=== PATIENT | female | born 1965 | race Caucasian/White ===

== ENCOUNTER 2020-09-06 06:31 | Inpatient (IN) | payer MEDICARE, SELFPAY ==
[2020-09-06] VITALS (52 sets, daily range): BP systolic 76–198; BP diastolic 52–148; PULSE 74–119; RESP 12–29; TEMP 35.6–38.7; O2SAT 94–100; BMI 44.2
[2020-09-06] MEDS: diphenhydrAMINE 50 mg/mL SDV 1mL (06:52)
[2020-09-06] MEDS: dexamethasone 10 mg/mL INJ IVP (06:57)
[2020-09-06] MEDS: EPINEPHrine 1 mg/mL INJ 0.3 MG IM (07:01)
[2020-09-06] MEDS: famotidine 20 mg/2 mL INJ 80 MG IVP (07:02)
--- NOTE | 2020-09-06 07:04 | PC.NURSE ---
Upon arrival to room, Dr Pete came to evaluate pt, pt was moved to room 11, intubation items set up and Dr Mathew was called to bedside. 20g IV placed to left hang 18g IV placed to right AC. Mylene Pete and [place] at bedside, difficult airway cart at bedside.
--- NOTE | 2020-09-06 07:10 | XR_ITS ---
WS: [id number] Exam: XR chest 1V portable [id number] Date/Time of Exam: 09/06/2020 7:10 AM Reason For Exam: syncope Findings: No priors. Diffuse interstitial densities noted throughout both lungs. This could represent chronic change, pulm onary edema or interstitial infiltrate. An ET tube is been placed and ends about 3 cm above the tamie a in good position. Cardiomediastinal structures are unremarkable for technique. No pleural effusions . Bony structures are unremarkable as visualized. XR/XR chest 1V portable [id number] IMPRESSION: 1. Diffuse interstitial infiltrates noted throughout both lungs. This could rep resent chronic change, interstitial pulmonary edema or infiltrate. 2. ET tube in satisfactory position.
[2020-09-06] MEDS: lidocaine 2% INJ 20 mL 60 ML INJECTION (07:11)
--- NOTE | 2020-09-06 07:12 | PC.NURSE ---
Aerosolized lidocaine started by RT via NRB
[2020-09-06 07:16] LABS: Basophils # 0.1 10^3/uL (0.0-0.1); Basophils % 0.3 %; Eosinophils # 0.3 10^3/uL (0.0-0.8); Eosinophils % 1.9 %; Hematocrit 39.9 % (37.0-47.0); Lymphocytes # 2.7 10^3/uL (0.8-4.8); Lymphocytes % 18.8 %; Mean Corpuscular HGB Conc 30.1 g/dL (30.0-36.0); Mean Corpuscular Volume 83.1 fL (81-99); Mean Platelet Volume 9.3 fL (7.4-10.4); Monocytes # 0.8 10^3/uL (0.2-0.9); Monocytes % 5.7 %; Neutrophils # 10.51 10^3/uL (1.8-7.7); Neutrophils % 72.9 %; Nucleated Red Blood Cells % 0 %; Platelet Count 450 10^3/cmm (130-400); White Blood Count 14.4 10^3/uL (4.0-10.0)
[2020-09-06] MEDS: dexmedetomidine 400 MCG in sodium chloride 0.9% (100 ml) 100 ML 14.7 MCG IV (07:18)
[2020-09-06] MEDS: midazolam 1 mg/mL INJ 2 mL 5 MG IVP (07:19)
[2020-09-06 07:23] LABS: INR 1.03 (0.8-1.2)
[2020-09-06 07:24] LABS: Partial Thromboplastin Time 32.4 SECONDS (23.9-36.7)
[2020-09-06] MEDS: fentaNYL 50 mcg/mL INJ 2mL IVP (07:26)
[2020-09-06] MEDS: fentaNYL 50 mcg/mL INJ 2mL 100 MCG IVP ×2 (07:26→08:50)
--- NOTE | 2020-09-06 07:27 | PC.NURSE ---
Aerosolized lidocaine administered to posterior pharynx by Dr Mathew. Nebulized lidocaine again administered by RT
[2020-09-06 07:30] LABS: Alanine Aminotransferase 31 U/L (0-33); Albumin Level 4.1 g/dL (3.5-5.2); Alkaline Phosphatase 104 IU/L (35-105); Anion Gap 14.1 (5-19); Aspartate Amino Transferase 23 U/L (0-32); Blood Urea Nitrogen 22 mg/dL (6-20); Calcium 9.7 mg/dL (8.5-10.5); Carbon Dioxide 27 mmol/L (22-29); Chloride 97 mmol/L (98-107); Globulin 3.7 g/dL (1.3-4.6); Glomerular Filtration Rate 51.4 mL/min (90-130); Glucose 240 mg/dL (65-115); Osmolality Calculated 289 mOsm/kg (285-295); Potassium 4.1 mmol/L (3.5-5.1); Sodium 134 mmol/L (136-145); Total Bilirubin 0.2 mg/dL (0.15-1.2); Total Protein 7.8 g/dL (6.6-8.7)
--- NOTE | 2020-09-06 07:31 | PC.NURSE ---
Another dose of aerosolized lidocaine administered by Dr Mathew
[2020-09-06] MEDS: succinylcholine 20 mg/mL SDV 10mL 120 MG IVP (07:44)
[2020-09-06] MEDS: propofol 1,000 MG/100 ML INJ 6.8 MG IV (07:46)
--- NOTE | 2020-09-06 08:14 | ED_ITS ---
HPI - General Adult General: Chief complaint: General Medical Stated complaint: swellling to the face Time Seen by Provider: 09/06/20 06:40 History of Present Illness: HPI narrative: 54 yo female with a hx of hereditary angioedema. Pt recently moved to the area and has not established with a physician. She has been controlling this in the past with oral prednisone and has been out of it for the last 2 wks. She present today with complaints of difficulty breathing, swallow or speaking. This has been progresing the last couple of days. Her daughter is with her today and states this is the worst it has been and pt confirms. pt emergently moved to trauma bay for airway management. Onset (ago): day(s) Location: face, mouth and eyes Severity: severe and similar to prior episodes Relieving factors: none Exacerbating factors: none Associated symptoms: Reports dyspnea, short of breath and weakness; Deny chest pain, confusion, cough, diaphoresis, decreased appetite, fevers/chills, headache(s), malaise, nausea, rash, palpitations, seizures, syncope or vomiting Treatments prior to arrival: none Review of Systems General: Reports: ROS unobtainable due to medical condition Const: Denies: malaise or diaphoresis Card: Denies: chest pain, palpitations or syncope Resp: Reports: dyspnea GI: Denies: nausea or vomiting Skin/Breast: Denies: rash Neuro: Denies: headache(s) or confusion PFS ED PFSH: Medical History (Updated 09/06/20 @ 11:12 by Azeb iLn DO) Angioedema, hereditary Immunocompromised due to corticosteroids Obesity Tobacco abuse Surgical History (Updated 09/06/20 @ 11:07 by Azeb Lin DO) History of tubal ligation Family History (Updated 09/06/20 @ 11:12 by Azeb Lin DO) Mother Diabetes Type 1 diabetes mellitus Father CAD (coronary artery disease) Social History (Updated 09/06/20 @ 11:13 by Azeb Lin DO) Smoking and tobacco status: current every day smoker Alcohol intake: never Substance/Drug Use: never Physical Exam HENMT: OTHER: Severe angioedema of the face. Includes the eyes lips and tongue unable to visualize the posterior pharynx patient was not able to speak patient is audible stridor with breathing. Trachea is still palpable. Resp: EFFORT & INSPECTION: Yes respiratory distress, Yes retractions and Yes audible wheezes OTHER: Patient has audible stridor. Cardio: COMMON NORMALS: regular rhythm RATE: tachycardic RHYTHM: regular rhythm GI: COMMON NORMALS: Soft to palpation and No hepatosplenomegaly present AUSCULTATION: Yes normoactive bowel sounds PALPATION: Yes Soft to palpation, No Tenderness to palpation present (GI), No Guarding due to palpation present (GI) and Yes No hepatosplenomegaly present Extremity: COMMON NORMALS: normal to inspection, capillary refill normal and no calf tenderness Skin: COMMON NORMALS: no rashes or lesions noted GENERAL SKIN EXAM: no rashes or lesions noted Course Vital Signs: Vital signs: Vital Signs Temperature 98.9 F 09/07/20 06:00 Pulse Rate 96 09/07/20 06:00 Respiratory Rate 16 09/07/20 07:59 Blood Pressure 130/96 09/07/20 06:00 Pulse Oximetry 98 09/07/20 06:00 MDM - General Adult MDM Narrative: Medical decision making narrative: Patient moved to the trauma bay and contacted anesthesia and Dr. Mathew. Preparations were made to perform an awake intubation. Dr. Mathew was able to successfully intubate the patient on the second attempt with a intubating fiberoptic bronchoscope. Patient then sedated with etomidate and propofol and fentanyl. Patient is tolerating well will admit to ICU with angioedema with the plan that once the angioedema resolves we should be able to extubate. Lab Data: Labs: Lab Results 09/06/20 09/06/20 09/06/20 Range/Units 06:50 06:50 06:50 WBC 14.4 H (4.0-10.0) 10^3/ uL RBC 4.80 (4.1-5.3) 10^6/u L Hgb 12.0 (11.5-15.3) g/dL Hct 39.9 (37.0-47.0) % MCV 83.1 (81-99) fL MCH 25.0 L (28.0-34.0) pg MCHC 30.1 (30.0-36.0) g/dL RDW 18.0 H (12.1-15.1) % Plt Count 450 H (130-400) 10^3/c mm MPV 9.3 (7.4-10.4) fL Neut % (Auto) 72.9 % Lymph % (Auto) 18.8 % [place] % (Auto) 5.7 % Eos % (Auto) 1.9 % Baso % (Auto) 0.3 % Neut # (Auto) 10.51 H (1.8-7.7) 10^3/u L Lymph # (Auto) 2.7 (0.8-4.8) 10^3/u L [place] # (Auto) 0.8 (0.2-0.9) 10^3/u L Eos # (Auto) 0.3 (0.0-0.8) 10^3/u L Baso # (Auto) 0.1 (0.0-0.1) 10^3/u L Nucleated RBC % (a uto) 0 % Nucleated RBCs # 0.0 /100WBC PT 13.90 (12.1-14.9) SECO NDS INR 1.03 (0.8-1.2) APTT 32.4 (23.9-36.7) SECO NDS Sodium 134 L (136-145) mmol/L Potassium 4.1 (3.5-5.1) mmol/L Chloride 97 L (98-107) mmol/L Carbon Dioxide 27 (22-29) mmol/L Anion Gap 14.1 (5-19) BUN 22 H (6-20) mg/dL Creatinine 1.1 H (0.5-0.9) mg/dL GFR Calculation 51.4 L (90-130) mL/min Glucose 240 H (65-115) mg/dL Calculated Osmolal ity 289 (285-295) mOsm/k g Calcium 9.7 (8.5-10.5) mg/dL Total Bilirubin 0.2 (0.15-1.2) mg/dL AST 23 (0-32) U/L ALT 31 (0-33) U/L Alkaline Phosphata se 104 (35-105) IU/L Total Protein 7.8 (6.6-8.7) g/dL Albumin 4.1 (3.5-5.2) g/dL Globulin 3.7 (1.3-4.6) g/dL Urine Color (Yellow) Urine Appearance (CLEAR) Urine pH (5-7) Ur Specific Gravit y (1.005-1.030) Urine Protein (Negative) Urine Glucose (UA) (Normal) Urine Ketones (Negative) Urine Blood (Negative) Urine Nitrate (Negative) Urine Bilirubin (Negative) Urine Urobilinogen (Negative) mg/dL Ur Leukocyte Samantha ase (Negative) Urine RBC (0-2) /hpf Urine WBC (0-5) /hpf Ur Squamous Epith Cells (0-5) /hpf Amorphous Sediment Urine Bacteria (NONE) /hpf Coarse Granular Ca sts /lpf Urine Mucus /hpf Complement C4 (10-40) mg/dL 09/06/20 09/06/20 Range/Units 06:50 08:05 WBC (4.0-10.0) 10^3/ uL RBC (4.1-5.3) 10^6/u L Hgb (11.5-15.3) g/dL Hct (37.0-47.0) % MCV (81-99) fL MCH (28.0-34.0) pg MCHC (30.0-36.0) g/dL RDW (12.1-15.1) % Plt Count (130-400) 10^3/c mm MPV (7.4-10.4) fL Neut % (Auto) % Lymph % (Auto) % [place] % (Auto) % Eos % (Auto) % Baso % (Auto) % Neut # (Auto) (1.8-7.7) 10^3/u L Lymph # (Auto) (0.8-4.8) 10^3/u L [place] # (Auto) (0.2-0.9) 10^3/u L Eos # (Auto) (0.0-0.8) 10^3/u L Baso # (Auto) (0.0-0.1) 10^3/u L Nucleated RBC % (a uto) % Nucleated RBCs # /100WBC PT (12.1-14.9) SECO NDS INR (0.8-1.2) APTT (23.9-36.7) SECO NDS Sodium (136-145) mmol/L Potassium (3.5-5.1) mmol/L Chloride (98-107) mmol/L Carbon Dioxide (22-29) mmol/L Anion Gap (5-19) BUN (6-20) mg/dL Creatinine (0.5-0.9) mg/dL GFR Calculation (90-130) mL/min Glucose (65-115) mg/dL Calculated Osmolal ity (285-295) mOsm/k g Calcium (8.5-10.5) mg/dL Total Bilirubin (0.15-1.2) mg/dL AST (0-32) U/L ALT (0-33) U/L Alkaline Phosphata se (35-105) IU/L Total Protein (6.6-8.7) g/dL Albumin (3.5-5.2) g/dL Globulin (1.3-4.6) g/dL Urine Color Yellow (Yellow) Urine Appearance Clear (CLEAR) Urine pH 5.0 (5-7) Ur Specific Gravit y 1.020 (1.005-1.030) Urine Protein Neg (Negative) Urine Glucose (UA) Trace H (Normal) Urine Ketones Negative (Negative) Urine Blood Neg (Negative) Urine Nitrate Negative (Negative) Urine Bilirubin Neg (Negative) Urine Urobilinogen Norm (Negative) mg/dL Ur Leukocyte Samantha ase Trace H (Negative) Urine RBC 0-4 H (0-2) /hpf Urine WBC 15-25 H (0-5) /hpf Ur Squamous Epith Cells 0-4 H (0-5) /hpf Amorphous Sediment Not Reportable Urine Bacteria 2+ H (NONE) /hpf Coarse Granular Ca sts 0-4 H /lpf Urine Mucus 1+ /hpf Complement C4 33 (10-40) mg/dL Discharge Plan Discharge Patient Disposition: Admitted As Inpatient Admit Provider: Azeb Lin Clinical Impression: Angioedema, hereditary, Acute airway obstruction Condition: Stable Discharge Date/Time: 09/06/20 11:10 Coding Level of Care Code ED Quality Control Chemist for Chg Fwd Exam Detailed
--- NOTE | 2020-09-06 08:17 | PC.NURSE ---
Procedure time for intubation started at approx 0725. See other notes for lidocaine times. At 0740, Dr Mathew attempted for the first time, attempt was unsuccessful, pt desaturated to 64%, pt was placed on BVM at 15L and quickly came up to 95%. Pt was pre-oxygenated for 2nd attempt. 7.5 tube placed at [address] Mathew and Dr Meeks, tube 27 at the lip. CXR was performed at 0749, per VO from Dr Pete, RT pulled tube out 3cm. Repeat CXR performed at 0751 and again tube was pulled back another 1cm by RT per VO from Dr Pete. Repeat CXR performed at 0753, showed ETT 2cm above the maged. Tube now 23 at the lip. Pt tolerated intubation fair, now resting on ventilator with TV 400, FiO2 60%, RR 14, and peep of 8.
[2020-09-06 08:20] LABS: Add Urine Microscopic? YES; Bilirubin Urine Neg (Negative); Blood Urine Neg (Negative); Glucose Urine UA Trace (Normal); Ketones Urine Negative (Negative); Leukocyte Esterase Urine Trace (Negative); Nitrate Urine Negative (Negative); Protein Urine Neg (Negative); Urine Appearance Clear (CLEAR); Urine Color Yellow (Yellow); Urobilinogen Urine Norm (Negative)
[2020-09-06 08:31] LABS: Bacteria Urine 2+ /hpf; Coarse Granular Casts Urine 0-4 /lpf; Mucus Urine 1+ /hpf; RBC Urine 0-4 /hpf (0-2); Squamous Epithelial Cell Urine 0-4 /hpf (0-5); WBC Urine 15-25 /hpf (0-5)
[2020-09-06 08:32] LABS: Add Urine Culture? Yes
[2020-09-06] MEDS: vecuronium 10 mg SDV IVP (08:47)
--- NOTE | 2020-09-06 08:53 | PC.NURSE ---
Pt was noted to be moving in the bed and attempting to self-extubate. Nursing staff and Dr Pete to pt side. RT was called. Pt given 10mg Vecuronium and 100mcg Fentanyl per VO from Dr Pete, Propofol drip increased to 30. Pt placed in soft-wrist restraints and suctioned, pt desaturated to 81% after suctioning. RT turned pt vent up to an FiO2 of 100% and peep of 10. Pt now resting comfortably.
--- NOTE | 2020-09-06 08:54 | XR_ITS ---
WS: [id number] Exam: XR chest 1V portable [id number] Date/Time of Exam: 09/06/2020 8:54 AM Reason For Exam: dyspnea/cough Findings: Comparison made with an exam performed earlier on the same day at 0747 hours. There is increasing infiltrate in the left lung since the prior study. The right lung is unchanged. E T tube remains in good position ending about 3 cm above the maged. No pneumothorax or pleural effusi on noted. Monitoring leads superimpose the chest. XR/XR chest 1V portable [id number] IMPRESSION: 1. Increasing diffuse infiltrate in the left lung since the earlier study on same day. No other change.
[2020-09-06] MEDS: ipratropium-albuterol 3 mL Neb INHALATION (09:02)
[2020-09-06 09:19] LABS: ABG PCO2 50.4 mmHg (35-45); ABG PH Result 7.29 (7.35-7.45); Arterial Blood Gas Hematocrit 36.3 % (37-47); Base Excess ABG -2.8 mmol/L (-2.0-2.0); Blood Gas Allen Test Pos; Blood Gas Sample Type Arterial; Carboxyhemoglobin 0.9 %THgb (0.4-20.1); HCO3 ABG 24.2 mmol/L (22-26); Ionized Calcium Level - ABG 1.2 mmol/L (1.1-1.4); Methemoglobin 0.7 % (0.4-1.5); Oxygen Saturation ABG 98.6; Potassium Level - ABG 4.6 mmol/L (3.5-5.0); Total Hemoglobin 11.8 g/dL (12-16)
[2020-09-06 09:20] LABS: Alveolar-Arterial Oxygen Gradi 51.7 mmHg (5-10); Blood Gas Operator Identificat ED; Blood Gas Sample Site Radial, left; Oxygen Device VENT
[2020-09-06 09:43] LABS: SARS Covid-2 Antigen Negative (Negative)
[2020-09-06] MEDS: sodium chloride 0.9% 1,000 ML 125 ML IV (10:02)
[2020-09-06] MEDS: dexmedetomidine 400 MCG in sodium chloride 0.9% (100 ml) 100 ML 41.3 MCG IV (10:25)
[2020-09-06] MEDS: enoxaparin 40 mg/0.4 mL Syringe SUBCUT (10:44)
--- NOTE | 2020-09-06 11:04 | PM.HP ---
Providers/Chief Complaint Admitting Physician: Azeb Lin DO Chief Complaint: swellling to the face History of Present Illness Stefani Darden is a 54 year old female that presented to the emergency department today for increasing difficulty breathing. Patient was reported to have hereditary angioedema and recently moved to this area last . She has not had time to establish with a primary care provider. According to her daughter she had been taking prednisone and Benadryl at home, she thought the prednisone was from the patient's brothers prescription as she had been out and not sought care in some time. She stated that she has episodes frequently and has had multiple emergency room trips where they have been able to give her steroids and send her back home for close monitoring. This is the first episode that is required mechanical ventilation. Unable to obtain HPI from patient due to sedation and mechanical ventilation. Daughter was able to provide some information but stated that she has not seen her mother in approximately 4 years, as she just came to live with her last . No recent cough or sputum production, no fevers or chills had been reported. Review of Systems General: Reports: ROS unobtainable due to endotracheal tube Medications/Allergies Home Medications Medication Instructions Recorded Confirmed Last Taken Type Unable to Assess 09/06/20 09/06/20 Unknown History Allergies Allergy/AdvReac Type Severity Reaction Status Date / Time No Known Allergies Allergy Verified 09/06/20 06:46 PFSH Acute PFSH: Medical History (Updated 09/06/20 @ 11:12 by Azeb Lin DO) Angioedema, hereditary Immunocompromised due to corticosteroids Obesity Tobacco abuse Surgical History (Updated 09/06/20 @ 11:07 by Azeb Lin DO) History of tubal ligation Family History (Updated 09/06/20 @ 11:12 by Azeb Lin DO) Mother Diabetes Type 1 diabetes mellitus Father CAD (coronary artery disease) Social History (Updated 09/06/20 @ 11:13 by Azeb Lin DO) Smoking and tobacco status: current every day smoker Alcohol intake: never Substance/Drug Use: never Supplemental PFSH Information: Recently moved here from an outside state to live with her daughter. Vitals/I&O/Wt Last Vital Signs Temp 96.0 F L 09/06/20 06:38 Pulse 76 09/06/20 10:52 Resp 18 09/06/20 10:52 BP 106/73 09/06/20 10:52 Pulse Ox 99 09/06/20 10:52 09/05/20 09/06/20 09/06/20 22:59 06:59 14:59 Intake Total 16.343 / 16.343 Balance 16.343 / 16.343 Weight last 48 hrs Weight 113.398 kg Physical Exam Const: GENERAL APPEARANCE: patient mechanically ventilated OTHER: Intubated, sedated HENMT: OTHER: Swelling of the lips, tongue and around the eyes, ET tube in place Eye: COMMON NORMALS: Equal, round and reactive pupils present PUPIL: Yes Equal, round and reactive pupils present Neck/C-Spine: OTHER: Swelling over the lips and neck Resp: OTHER: Intubated, sedated, diminished breath sounds bilaterally Cardio: COMMON NORMALS: regular rate, regular rhythm and No murmurs present (Cardio) RATE: regular rate RHYTHM: regular rhythm GI: COMMON NORMALS: Soft to palpation and non-tender INSPECTION: No abdominal distension AUSCULTATION: Yes normoactive bowel sounds PALPATION: Yes Soft to palpation Extremity: COMMON NORMALS: no clubbing, cyanosis or edema and no calf tenderness Neuro: OTHER: Sedated Skin: NARRATIVE SKIN EXAM: No appreciable rashes or lesions Urinary Catheter Management^: [place]: Cath Placed During This Visit: yes Reason for Continuing Indwelling Catheter: Accurate Measurement of Urinary Output in Critically Ill Patients Urinary Catheter Date of Insertion: 09/06/20 Urinary Catheter Time of Insertion: 07:58 Data : 09/06/20 06:50 09/06/20 06:50 CXR: I personally reviewed and interpreted this imaging study as follows: Radiologist's impression: Findings: Comparison made with an exam performed earlier on the same day at 0747 hours. There is increasing infiltrate in the left lung since the prior study. The right lung is unchanged. ET tube remains in good position ending about 3 cm above the maged. No pneumothorax or pleural effusion noted. Monitoring leads superimpose the chest. XR/XR chest 1V portable [id number] IMPRESSION: 1. Increasing diffuse infiltrate in the left lung since the earlier study on the same day. No other change. A&P Assessment and plan (1) Angioedema, hereditary: Family reports that patient was previously on prednisone 20mg daily for the last 6 yrs. Given IV steroids on arrival, will continue at this time for stress dosing will check C4 level check C1 inhibitor antigenic level Status: Acute (2) Acute airway obstruction: s/p intubation in the ED due to stridor, difficult intubation due to angioedema Status: Acute (3) Immunocompromised due to corticosteroids: On stress dose steroids at this time Status: Acute (4) Tobacco abuse: strongly encourage cessation Status: Acute (5) Obesity: Status: Acute Additional A&P Information Diet: NPO DVT ppx: Lovenox Code status: Full code Attestations Medical Necessity Statement*: Patient requires hospitalization due to angioedema with compromised airway requiring intubation. Expected stay greater than 2 midnights Coding Level of Care Code Acute Senior Manufacturing Engineer for Chg Fwd Exam Detailed Diagnoses Angioedema, hereditary D84.1 Acute airway obstruction J98.8 Immunocompromised due to corticosteroids Z79.52 Tobacco abuse Z72.0 Obesity E66.9
--- NOTE | 2020-09-06 12:18 | PM.ACPR ---
Procedure/Consent Time out: Time Out Performed: No Consent: Consent for Procedure: Consent obtained from patient Additional Consent Information: Verbally Procedure Narrative: Name of the procedure: Bronchoscopy and fiberoptic awake intubation. Indication: Threatened airway secondary to angioedema. Medication: Nebulized lidocaine, dexmedetomidine, Versed 2 mg, fentanyl 50 mcg, ketamine 100 mg. Description of the procedure: Consent was obtained verbally for the bronchoscopy and fiberoptic awake intubation procedure. The patient received 2% lidocaine 5 mL nebulized followed by atomized lidocaine in the posterior pharynx and laryngeal area. The patient was sedated using the above-mentioned medications. The bronchoscopy was performed while the patient sitting 90 degrees. The endotracheal tube was loaded on the bronchoscope and the bronchoscope was advanced through the mouth. Significant swelling of the tongue, floor of the mouth, posterior pharyngeal area, uvula and false vocal cords noted. There was clear secretion in the area. During the first attempt, the patient rapidly desaturated within 15 seconds. She was oxygenated using bag mask ventilation with rapid correction of the hypoxia. On the second attempt, I was able to pass the bronchoscope through the vocal cords. The upper trachea, maged appeared normal without any significant swelling. The endotracheal tube was advanced and the position was confirmed in the trachea. Complications: The patient tolerated the procedure well. Postprocedure chest x-ray showed optimally positioned endotracheal tube. Acute Procedures Epistaxis Control: Time out performed: No
[2020-09-06] MEDS: dexmedetomidine 400 MCG in sodium chloride 0.9% (100 ml) 100 ML 35.4 MCG IV (12:58)
[2020-09-06 13:00] LABS: Troponin(5th) Baseline 12 ng/L (0-10)
[2020-09-06] MEDS: propofol 1,000 MG/100 ML INJ 27.2 MG IV ×3 (13:15→20:04)
[2020-09-06 16:01] LABS: Troponin 5 2HR 16.25 ng/L (0-10); Troponin 5 2HR Delta 4.25 ABS# (0-10)
--- NOTE | 2020-09-06 17:57 | ECG_ITS ---
[facility] Test Date: 2020-09-06 Pat Name: Stefani Darden Department: Room: ICU10 Gender: Female Ash Handler: : 1965 Requested By: Azeb Lin Order Number: [id number] Reading MD: Measurements Intervals [place] Rate: 74 P: 54 SD: 156 QRS: 66 QRSD: 76 T: 76 QT: 414 QTc: 461 Interpretive Statements SINUS RHYTHM No previous ECG available for comparison [email or web address]
[2020-09-06] MEDS: famotidine 20 mg/2 mL INJ IVP (17:59)
[2020-09-06 18:45] LABS: Troponin 5 6HR 10.39 ng/L (0-10)
[2020-09-06 19:07] LABS: Troponin 5 6HR Delta -1.61 ng/L (0-12)
[2020-09-06] MEDS: acetaminophen 650 mg Supp PR (19:26)
[2020-09-06 19:54] LABS: Lactic Sepsis W/Reflex 1.7 mmol/L (0.5-2.2)
--- NOTE | 2020-09-06 21:43 | PC.NURSE ---
This RN completed spot Accucheck based off findings of pt having history of DM type 1 documented in ER H&P. BG found to be 385. Contacted MD Angelica policyholder information clerk to update on findings. New v/o for Accuchecks to be completed ACHS, with sliding scale insulin to be ordered.
[2020-09-06] MEDS: propofol 1,000 MG/100 ML INJ 34 MG IV (22:44)
[2020-09-07] VITALS (85 sets, daily range): BP systolic 92–133; BP diastolic 59–96; PULSE 73–106; RESP 16–41; TEMP 36.3–37.5; O2SAT 90–98
[2020-09-07] MEDS: propofol 1,000 MG/100 ML INJ 34 MG IV ×4 (01:29→10:24)
[2020-09-07 02:20] LABS: Glucose Point of Care 421 mg/dL (70-110)
[2020-09-07 04:14] LABS: Basophils % 0.1 %; Eosinophils % 0.1 %; Hematocrit 38.8 % (37.0-47.0); Hemoglobin 11.2 g/dL (11.5-15.3); Lymphocytes # 1.3 10^3/uL (0.8-4.8); Lymphocytes % 11.7 %; Mean Corpuscular HGB Conc 28.9 g/dL (30.0-36.0); Mean Corpuscular Hemoglobin 24.2 pg (28.0-34.0); Mean Platelet Volume 9.5 fL (7.4-10.4); Monocytes # 0.5 10^3/uL (0.2-0.9); Monocytes % 4.6 %; Neutrophils # 8.96 10^3/uL (1.8-7.7); Neutrophils % 82.8 %; Nucleated Red Blood Cells % 0 %; Platelet Count 405 10^3/cmm (130-400); Red Blood Count 4.62 10^6/uL (4.1-5.3); Red Cell Distribution Width 17.9 % (12.1-15.1); White Blood Count 10.8 10^3/uL (4.0-10.0)
[2020-09-07 04:33] LABS: Alanine Aminotransferase 40 U/L (0-33); Albumin Level 3.7 g/dL (3.5-5.2); Alkaline Phosphatase 102 IU/L (35-105); Anion Gap 16.8 (5-19); Aspartate Amino Transferase 28 U/L (0-32); Blood Urea Nitrogen 26 mg/dL (6-20); Calcium 8.9 mg/dL (8.5-10.5); Carbon Dioxide 22 mmol/L (22-29); Chloride 102 mmol/L (98-107); Globulin 3.6 g/dL (1.3-4.6); Glomerular Filtration Rate 57.4 mL/min (90-130); Glucose 352 mg/dL (65-115); Osmolality Calculated 303 mOsm/kg (285-295); Potassium 3.8 mmol/L (3.5-5.1); Sodium 137 mmol/L (136-145); Total Bilirubin 0.2 mg/dL (0.15-1.2); Total Protein 7.3 g/dL (6.6-8.7)
[2020-09-07 05:10] LABS: ABG PCO2 43.3 mmHg (35-45); ABG PH Result 7.36 (7.35-7.45); Base Excess ABG -1.2 mmol/L (-2.0-2.0); Blood Gas Allen Test Pos; Blood Gas Sample Site Radial, right; Blood Gas Sample Type Arterial; HCO3 ABG 24.4 mmol/L (22-26); Oxygen Device VENT; PO2 ABG 79.2 mmHg (80.0-100.0)
[2020-09-07] MEDS: famotidine 20 mg/2 mL INJ IVP ×2 (06:16→17:33)
--- NOTE | 2020-09-07 06:20 | PC.NURSE ---
Shift Summary: Patient has shown some signs of increased agitation throughout shift. Ativan IVP given once. Low grade fever at start of shift. PRN Tylenol Suppository given. Cool cloths applied to neck/axillary Pt airway still patent. SPO2 maintains above 95%. Edema to right side of face and periorbital range slowly increasing throughout shift. Airway still maintains. 700 u/o. Propofol 50mcg/kg/min (see mar flowsheet) Fentanyl 75mcg/hr Sedation vacation attempted this AM. Patient unable to show response when asked. Localizes pain. Report given to oncoming dayshift RN.
[2020-09-07 06:41] LABS: Coronavirus Lab Test PTC Negative
[2020-09-07 07:47] LABS: Glucose Point of Care 332 mg/dL (70-110)
[2020-09-07 07:47] LABS: Glucose Point of Care 328 mg/dL (70-110)
[2020-09-07 07:47] LABS: Glucose Point of Care 385 mg/dL (70-110)
[2020-09-07] MEDS: pantoprazole 40 mg SDV IVP (08:03)
--- NOTE | 2020-09-07 10:09 | PM.PN ---
Subjective Subjective: Interval history: Intubated, sedated, appears to have improved facial swelling, RN at bedside reported no concerns overnight Vitals/I&O/Wt Last Vital Signs Temp 97.4 F L 09/07/20 07:00 Pulse 98 09/07/20 08:30 Resp 41 H 09/07/20 09:41 BP 114/77 09/07/20 08:30 Pulse Ox 94 09/07/20 08:30 09/06/20 09/07/20 09/07/20 22:59 06:59 14:59 Intake Total 306.277 / 1515.910 193.5 / 1709.410 189.75 / 189.75 Output Total 1275 / 1275 325 / 1600 Balance -968.723 / 240.910 -131.5 / 109.410 189.75 / 189.75 Weight last 48 hrs Weight 125.191 kg Weight 113.398 kg Physical Exam Const: GENERAL APPEARANCE: patient mechanically ventilated OTHER: Intubated, sedated HENMT: OTHER: Swelling of the lips, tongue and around the eyes has improved since yesterday, ET tube in place Eye: COMMON NORMALS: Equal, round and reactive pupils present PUPIL: Yes Equal, round and reactive pupils present Neck/C-Spine: OTHER: Swelling over the lips and neck have improved Resp: OTHER: Intubated, sedated, diminished breath sounds bilaterally Cardio: COMMON NORMALS: regular rate, regular rhythm and No murmurs present (Cardio) RATE: regular rate RHYTHM: regular rhythm GI: COMMON NORMALS: Soft to palpation and non-tender INSPECTION: No abdominal distension AUSCULTATION: Yes normoactive bowel sounds PALPATION: Yes Soft to palpation Extremity: COMMON NORMALS: no clubbing, cyanosis or edema and no calf tenderness Neuro: OTHER: Sedated Skin: NARRATIVE SKIN EXAM: No appreciable rashes or lesions Urinary Catheter Management^: [place]: Cath Placed During This Visit: yes Reason for Continuing Indwelling Catheter: Accurate Measurement of Urinary Output in Critically Ill Patients Urinary Catheter Date of Insertion: 09/06/20 Urinary Catheter Time of Insertion: 07:58 Data : 09/07/20 03:55 09/07/20 03:55 Micro: Microbiology 09/06/20 08:05 Urine Culture - Preliminary Urine,Clean Catch 09/06/20 19:26 Blood Culture - Preliminary Blood SPECIMEN COLLECTED 09/06/20 19:30 Blood Culture - Preliminary Blood SPECIMEN COLLECTED 09/06/20 08:10 Gram Stain - Final Sputum - Endotracheal Tube Aspirate A&P Assessment and plan (1) Angioedema, hereditary: Family reports that patient was previously on prednisone 20mg daily for the last 6 yrs. Decreased dose of IV steroids today Need close outpatient follow-up We will continue to monitor airway with potential extubation today or tomorrow Status: Acute (2) Acute airway obstruction: s/p intubation in the ED due to stridor, difficult intubation due to angioedema Status: Acute (3) Immunocompromised due to corticosteroids: On stress dose steroids at this time Status: Acute (4) Tobacco abuse: strongly encourage cessation Status: Acute (5) Obesity: Status: Acute Additional A&P Information Isolated fever overnight: Blood cultures ordered, will check procalcitonin, no evidence of any bacterial infection at this time, afebrile today Diet: NPO DVT ppx: Lovenox Code status: Full code Attestations Medical Necessity Statement*: Patient requires hospitalization due to hereditary angioedema requiring mechanical ventilation Coding Level of Care Code Acute Provisioning Specialist for [facility] Fwd Diagnoses Angioedema, hereditary D84.1 Acute airway obstruction J98.8 Immunocompromised due to corticosteroids Z79.52 Tobacco abuse Z72.0 Obesity E66.9
[2020-09-07] MEDS: enoxaparin 40 mg/0.4 mL Syringe SUBCUT (10:22)
[2020-09-07 10:58] LABS: Glucose Point of Care 302 mg/dL (70-110)
[2020-09-07] MEDS: propofol 1,000 MG/100 ML INJ 40.8 MG IV ×4 (14:30→22:14)
[2020-09-07 17:04] LABS: Glucose Point of Care 218 mg/dL (70-110)
[2020-09-08] VITALS (73 sets, daily range): BP systolic 99–133; BP diastolic 56–99; PULSE 69–121; RESP 6–29; TEMP 36.2–37.3; O2SAT 90–99
[2020-09-08] MEDS: propofol 1,000 MG/100 ML INJ 40.8 MG IV ×2 (00:53→03:36)
[2020-09-08 05:25] LABS: Blood Gas Sample Type Arterial; HCO3 ABG 25.7 mmol/L (22-26); Oxygen Device VENT
[2020-09-08] MEDS: famotidine 20 mg/2 mL INJ IVP ×2 (05:52→17:03)
[2020-09-08 05:57] LABS: ABG PCO2 41.2 mmHg (35-45); Arterial Blood Gas Hematocrit 34.2 % (37-47); Base Excess ABG 0.8 mmol/L (-2.0-2.0); Blood Gas Operator Identificat HARKR; Blood Gas Sample Site Brachial, right; PO2 ABG 74.8 mmHg (80.0-100.0)
[2020-09-08] MEDS: propofol 1,000 MG/100 ML INJ 34 MG IV (06:35)
[2020-09-08 07:48] LABS: Glucose Point of Care 212 mg/dL (70-110)
[2020-09-08 07:48] LABS: Glucose Point of Care 230 mg/dL (70-110)
[2020-09-08 08:20] LABS: Alanine Aminotransferase 42 U/L (0-33); Albumin Level 3.6 g/dL (3.5-5.2); Alkaline Phosphatase 88 IU/L (35-105); Anion Gap 14.1 (5-19); Aspartate Amino Transferase 37 U/L (0-32); Blood Urea Nitrogen 33 mg/dL (6-20); Calcium 8.8 mg/dL (8.5-10.5); Carbon Dioxide 24 mmol/L (22-29); Chloride 101 mmol/L (98-107); Globulin 3.3 g/dL (1.3-4.6); Glomerular Filtration Rate 74.2 mL/min (90-130); Glucose 257 mg/dL (65-115); Osmolality Calculated 296 mOsm/kg (285-295); Potassium 4.1 mmol/L (3.5-5.1); Sodium 135 mmol/L (136-145); Total Bilirubin 0.2 mg/dL (0.15-1.2); Total Protein 6.9 g/dL (6.6-8.7)
[2020-09-08] MEDS: pantoprazole 40 mg SDV IVP (09:19)
[2020-09-08] MEDS: enoxaparin 40 mg/0.4 mL Syringe SUBCUT (11:49)
--- NOTE | 2020-09-08 14:18 | PM.PN ---
Subjective Subjective: Interval history: Patient intubated and sedated this morning. Open her eyes some in response to voice. Vitals/I&O/Wt Last Vital Signs Temp 97.1 F L 09/08/20 07:00 Pulse 109 H 09/08/20 14:15 Resp 22 H 09/08/20 14:15 BP 126/91 09/08/20 14:15 Pulse Ox 93 09/08/20 14:15 09/07/20 09/08/20 09/08/20 22:59 06:59 14:59 Intake Total 356.573 / 778.698 401.417 / 1180.115 132.919 / 132.919 Output Total 425 / 425 400 / 825 Balance -68.427 / 353.698 1.417 / 355.115 132.919 / 132.919 Weight last 48 hrs Weight 125.191 kg Weight 125.191 kg Physical Exam Const: GENERAL APPEARANCE: patient mechanically ventilated OTHER: Intubated, sedated HENMT: OTHER: Swelling of the lips, tongue and around the eyes has improved since yesterday, ET tube in place Eye: COMMON NORMALS: Equal, round and reactive pupils present PUPIL: Yes Equal, round and reactive pupils present Neck/C-Spine: OTHER: Swelling over the lips and neck have much improved Resp: OTHER: Intubated, sedated, diminished breath sounds bilaterally Cardio: COMMON NORMALS: regular rate, regular rhythm and No murmurs present (Cardio) RATE: regular rate RHYTHM: regular rhythm GI: COMMON NORMALS: Soft to palpation and non-tender INSPECTION: No abdominal distension AUSCULTATION: Yes normoactive bowel sounds PALPATION: Yes Soft to palpation Extremity: COMMON NORMALS: no clubbing, cyanosis or edema and no calf tenderness Neuro: OTHER: Sedated Skin: NARRATIVE SKIN EXAM: No appreciable rashes or lesions Urinary Catheter Management^: Marin: Cath Placed During This Visit: yes Reason for Continuing Indwelling Catheter: Accurate Measurement of Urinary Output in Critically Ill Patients Urinary Catheter Date of Insertion: 09/06/20 Urinary Catheter Time of Insertion: 07:58 Data : 09/07/20 03:55 09/08/20 07:50 Micro: Microbiology 09/06/20 08:10 Gram Stain - Final Sputum - Endotracheal Tube Aspirate Sputum Culture - Preliminary 09/06/20 08:05 Urine Culture - Preliminary Urine,Clean Catch 09/06/20 19:26 Blood Culture - Preliminary Blood NEGATIVE TO DATE 09/06/20 19:30 Blood Culture - Preliminary Blood NEGATIVE TO DATE A&P Assessment and plan (1) Angioedema, hereditary: Family reports that patient was previously on prednisone 20mg daily for the last 6 yrs. Wean sedation and extubate today Status: Acute (2) Acute airway obstruction: s/p intubation in the ED due to stridor, difficult intubation due to angioedema Went for extubation today Status: Acute (3) Immunocompromised due to corticosteroids: On stress dose steroids at this time, transition to prednisone Status: Acute (4) Tobacco abuse: strongly encourage cessation Status: Acute (5) Obesity: Status: Acute Additional A&P Information Isolated fever overnight: Blood cultures ordered, will check procalcitonin, no evidence of any bacterial infection at this time, afebrile today Diet: NPO DVT ppx: Lovenox Code status: Full code Attestations Medical Necessity Statement*: Patient requires hospitalization due to angioedema with loss of airway requiring mechanical ventilation Coding Level of Care Code Acute Camera Mechanic for [facility] Diagnoses Angioedema, hereditary D84.1 Acute airway obstruction J98.8 Immunocompromised due to corticosteroids Z79.52 Tobacco abuse Z72.0 Obesity E66.9
--- NOTE | 2020-09-08 16:45 | PC.RESP ---
Smoking Cessation information sent to patient.
[2020-09-08 16:59] LABS: Glucose Point of Care 166 mg/dL (70-110)
[2020-09-08 17:02] LABS: Glucose Point of Care 199 mg/dL (70-110)
--- NOTE | 2020-09-08 18:49 | PC.NURSE ---
Pt did very well today. She was extubated at 11:15 this morning after a successful ventilator weaning trial. She tolerated ice chips without difficulty, so she was advanced to a clear liquid diet. Heart rate is elevated at times (as high as 120bpm); otherwise VSS. Normal sinus rhythm without ectopy noted. Pt is currently alert and oriented. Daughter Ana was here during visiting hours; all of her questions were answered.
--- NOTE | 2020-09-08 18:54 | PC.NURSE ---
Addendum entered by Radha Pelletier RN 09/08/20 19:00: Witnessed 70mL Fentanyl left over from drip, wasted by April Marcos RN Original Note: Fentanyl waste: Wasted 70ml Fentanyl plus volume in tubing from infusion order which is now discontinued. Witnessed by Edith Pelletier RN.
[2020-09-08 21:26] LABS: Glucose Point of Care 133 mg/dL (70-110)
[2020-09-09] VITALS (21 sets, daily range): BP systolic 88–131; BP diastolic 55–84; PULSE 84–125; RESP 15–34; TEMP 36.4–36.9; O2SAT 93–99; BMI 48.9
[2020-09-09] MEDS: famotidine 20 mg/2 mL INJ IVP ×2 (06:06→17:45)
[2020-09-09 08:29] LABS: Glucose Point of Care 162 mg/dL (70-110)
--- NOTE | 2020-09-09 08:37 | XRR_ITS ---
PROCEDURE INFORMATION: Exam: XR Chest, 1 View Exam date and time: 09/09/2020 8:42 AM Age: 54 years old Clinical indication: Shortness of breath; Additional info: SOB TECHNIQUE: Imaging protocol: XR of the chest Views: 1 view. COMPARISON: CR XR chest 1V portable [id number] 09/06/2020 8:48 AM FINDINGS: Tubes, catheters and devices: Interval removal of endotracheal tube. New para no cardiomegaly. Lungs: Emphysematous change and interstitial prominence, without significant airspace disease. Pleural space: No pleural effusion. Heart/Mediastinum: Hiatal hernia . Bones/joints: Osteopenia and mild degenerative change. XR/XR chest 1V portable [id number] IMPRESSION: Emphysematous change and interstitial prominence, without significant airspace disease.
[2020-09-09] MEDS: predniSONE 20 mg Tablet 60 MG PO (08:39)
[2020-09-09] MEDS: pantoprazole 40 mg SDV IVP (08:39)
--- NOTE | 2020-09-09 08:56 | P.PN_ITS ---
Subjective Subjective: Interval history: Patient hospital course and morning labs noted. Patient extubated yesterday. On examination patient lying comfortably in bed. Denies any nausea, vomiting, headache, dizziness. Overnight has remained stable. Saturating 94% on 3 L nasal cannula. Documented urine output in last 24 hours 1600 cc. Patient states she was diagnosed of hereditary angioedema around 6 years ago. She denies of any one else in her family having similar problems. She denies of any throat pain right now denies any difficulty in breathing right now. States she has never been intubated in the past. Vitals/I&O/Wt Last Vital Signs Temp 99.1 F 09/08/20 19:00 Pulse 89 09/09/20 07:40 Resp 15 09/09/20 06:00 BP 95/55 09/09/20 06:00 Pulse Ox 98 09/09/20 07:40 09/08/20 09/09/20 09/09/20 22:59 06:59 14:59 Intake Total 725 / 857.919 Output Total 550 / 550 550 / 1100 Balance 175 / 307.919 -550 / -242.081 Weight last 48 hrs Weight 125.191 kg Weight 125.191 kg Physical Exam Narrative: EXAM NARRATIVE: General: No acute distress, AO x3, morbidly obese HEENT: PERRLA, pupils bilaterally equal and reactive Chest: Normal vesicular breath sounds, occasional rhonchi, equal good air entry bilaterally CVS: S1-S2 regular, no murmurs, no tachycardia, no gallops, no rubs Abdomen: Soft, nontender, no organomegaly, bowel sounds present Neuro: No focal deficits, no facial deformity, AO x3, power 5/5 in all limbs Urinary Catheter Management^: Marin: Cath Placed During This Visit: yes Reason for Continuing Indwelling Catheter: Accurate Measurement of Urinary Output in Critically Ill Patients Urinary Catheter Date of Insertion: 09/06/20 Urinary Catheter Time of Insertion: 07:58 Data : 09/09/20 09:36 09/09/20 09:36 Micro: Microbiology 09/06/20 08:10 Gram Stain - Final Sputum - Endotracheal Tube Aspirate Sputum Culture - Preliminary 09/06/20 08:05 Urine Culture - Preliminary Urine,Clean Catch A&P Assessment and plan (1) Angioedema, hereditary: Family reports that patient was previously on prednisone 20mg daily for the last 6 yrs. Wean sedation and extubate today Status: Acute (2) Acute airway obstruction: Status: Acute (3) Immunocompromised due to corticosteroids: Status: Acute (4) Tobacco abuse: strongly encourage cessation Status: Acute (5) Obesity: Status: Acute Additional A&P Information Airway obstruction secondary to possible hereditary angioedema: Patient has never been formally diagnosed but has been on prednisone 20 mg daily for last 6 years. She moved to [facility] 6 days ago. Denies any changes in medications or the consistent diet recently. Extubated yesterday on September 08. Currently needing 3 L to maintain saturation over 94%. Will wean off gradually. Start patient on budesonide, duo nebs every 6 hours. Continue with prednisone 60 mg daily. Will need slow taper as an outpatient. Patient explained in detail that she needs to follow-up with her primary care provider. She states she already has an appointment with a new primary care provider on next Friday. As patient has been on prolonged antibiotic for a long time patient will most likely need a PCP prophylaxis with Bactrim. Check procalcitonin, [facility] any profile, complement levels, complement C1q levels. Check chest x-ray, proBNP. Patient did have fever during hospitalization. Blood cultures have remained negative. Sputum culture growing MSSA. We will start patient on Augmentin to finish a 5-day course. Patient explained in detail that it is quite possible that she has obstructive sleep apnea and she would need to follow-up with her primary care provider for a sleep study as an outpatient. Plan to transfer to floors. Insulin sliding scale as patient is on high-dose steroids. Check HbA1c, lipid panel, iron panel, TSH. Patient will need home O2 evaluation prior to discharge. Diet: Currently on clear liquid diet will advance to GI soft. DVT ppx: Lovenox Code status: Full code Attestations Medical Necessity Statement*: Patient needs further hospitalization for management of acute obstruction of airway because of angioedema, extubated yesterday while weaning of oxygen and advancing diet. Time Spent in Patient Care: Greater than 35 minutes (>than 50% of time spent in counselling and/or direct pt care on unit) . Coding Level of Care Code Acute Karate Teacher for [facility] Diagnoses Angioedema, hereditary D84.1 Acute airway obstruction J98.8 Immunocompromised due to corticosteroids Z79.52 Tobacco abuse Z72.0 Obesity E66.9
--- NOTE | 2020-09-09 09:35 | PC.SOCIAL ---
Pg 2 IMM Explained to pt's daughter, via phone, Pg 2 IMM. No questions voiced. Signed, dated, & timed a copy for chart.
[2020-09-09 09:54] LABS: Basophils % 0.2 %; Eosinophils # 0.1 10^3/uL (0.0-0.8); Eosinophils % 0.5 %; Hematocrit 36.4 % (37.0-47.0); Hemoglobin 10.6 g/dL (11.5-15.3); Lymphocytes # 2.7 10^3/uL (0.8-4.8); Lymphocytes % 23.6 %; Mean Corpuscular HGB Conc 29.1 g/dL (30.0-36.0); Mean Corpuscular Hemoglobin 24.8 pg (28.0-34.0); Mean Corpuscular Volume 85.2 fL (81-99); Mean Platelet Volume 8.9 fL (7.4-10.4); Monocytes % 8.5 %; Neutrophils # 7.63 10^3/uL (1.8-7.7); Neutrophils % 66.7 %; Nucleated Red Blood Cells % 0 %; Platelet Count 406 10^3/cmm (130-400); Red Blood Count 4.27 10^6/uL (4.1-5.3); Red Cell Distribution Width 18.2 % (12.1-15.1); White Blood Count 11.4 10^3/uL (4.0-10.0)
[2020-09-09 10:38] LABS: NT Pro B Type Natriuretic Pept 614 pg/mL (0-125); Procalcitonin 0.15 ng/mL (0-0.5)
[2020-09-09 10:49] LABS: Alanine Aminotransferase 45 U/L (0-33); Albumin Level 3.5 g/dL (3.5-5.2); Alkaline Phosphatase 83 IU/L (35-105); Anion Gap 15.5 (5-19); Aspartate Amino Transferase 72 U/L (0-32); Blood Urea Nitrogen 21 mg/dL (6-20); Calcium 8.6 mg/dL (8.5-10.5); Carbon Dioxide 25 mmol/L (22-29); Chloride 103 mmol/L (98-107); Glomerular Filtration Rate 86.6 mL/min (90-130); Glucose 191 mg/dL (65-115); Iron 55 ug/dL (37-145); Osmolality Calculated 298 mOsm/kg (285-295); Percent Saturation 17.9 % (20-50); Potassium 3.5 mmol/L (3.5-5.1); Sodium 140 mmol/L (136-145); Total Bilirubin 0.2 mg/dL (0.15-1.2); Total Iron Binding Capacity 306 mcg/dl; Total Protein 6.5 g/dL (6.6-8.7); Unsaturated Iron Binding 251 ug/dL (112-347)
[2020-09-09 11:15] LABS: Complement C3 175 mg/dL (90-180)
[2020-09-09] MEDS: ipratropium-albuterol 3 mL Neb INHALATION ×2 (11:35→14:30)
[2020-09-09] MEDS: budesonide 0.5 mg/2 mL Neb INHALATION ×2 (11:36→21:16)
[2020-09-09 11:46] LABS: Glucose Point of Care 253 mg/dL (70-110)
--- NOTE | 2020-09-09 11:50 | PC.NURSE ---
Report faxed to [facility]. Further verbal report called to KIMI Chu, [facility].
[2020-09-09] MEDS: enoxaparin 40 mg/0.4 mL Syringe SUBCUT (12:00)
--- NOTE | 2020-09-09 12:05 | PC.NURSE ---
Notified daughter Ana, of impending transfer.
--- NOTE | 2020-09-09 12:31 | PC.NURSE ---
Pt transferred to [facility]. All belongings with pt.
--- NOTE | 2020-09-09 12:31 | PC.NURSE ---
Dr Gallo called to check on pt., last B/P . Pt doing well, alert and oriented, excited about moving out of ICU Ready for some food not just clear liquids. Diet order updated. MRSA swab discussed, it was cancelled. Carolina Chu notified of changes.
[2020-09-09] MEDS: sulfamethoxazole-trimeth DS 160-800 mg Tablet 1 TAB PO (15:18)
[2020-09-09] MEDS: amoxicillin-clav 875-125 mg Tablet 1 TAB PO (17:40)
--- NOTE | 2020-09-09 19:17 | ECG_ITS ---
[facility] Test Date: 2020-09-09 Pat Name: Stefani Darden Department: Room: 250 Gender: Female Fish Cleaner: : 1965 Requested By: Heladio Christopher Order Number: [id number] Reading MD: TOM HOANG Measurements Intervals Hale Rate: 86 P: 41 UT: 148 QRS: 52 QRSD: 77 T: 50 QT: 339 QTc: 407 Interpretive Statements SINUS RHYTHM Compared to ECG 09/06/2020 14:28:41 No significant changes Electronically Signed On 09-10-2020 19:35:50 FUR COAT SEWER by TOM HOANG [id number]
[2020-09-09] MEDS: metoprolol tartrate 25 mg Tablet 12.5 MG PO (19:43)
[2020-09-09 21:03] LABS: Glucose Point of Care 157 mg/dL (70-110)
[2020-09-09] MEDS: ipratropium 0.5 mg/2.5 mL Neb INHALATION (21:17)
--- NOTE | 2020-09-09 21:25 | PC.NURSE ---
HR HR was [address] at shift beginning[address] Monitor [address]. Received one time dose of po Metopralol as ordered and HR has come down to 89/90
[2020-09-10] VITALS: BP 108/78; PULSE 93; RESP 19; TEMP 36.7; O2SAT 95
[2020-09-10 04:00] VITALS: BP 102/75; PULSE 88; RESP 18; TEMP 36.6; O2SAT 96
--- NOTE | 2020-09-10 05:58 | PC.NURSE ---
SHIFT SUMMARY Has rested well tonight without c/o. Is hoping to go home today. Is voiding well since Marin catheter removed yesterday.
[2020-09-10] MEDS: famotidine 20 mg/2 mL INJ IVP (05:59)
[2020-09-10 06:13] LABS: Chol HDL Ratio 5.12 mg/dL (0.0-4.40); Cholesterol 174 mg/dL (0-200); HDL Cholesterol 34 mg/dL (60-100); LDL Cholesterol Calculated 112 mg/dL (50-129); Triglycerides 138 mg/dL (0-150); VLDL Cholestrol Calculation 28 mg/dL (0-30)
[2020-09-10 06:22] LABS: Estmated Average Glucose 223; Hemoglobin A1C 9.4 % (4.0-6.0)
[2020-09-10 07:18] LABS: Glucose Point of Care 159 mg/dL (70-110)
[2020-09-10 07:23] VITALS: BP 129/92; PULSE 110; RESP 18; TEMP 36.5; O2SAT 95
[2020-09-10] MEDS: ipratropium 0.5 mg/2.5 mL Neb INHALATION (08:26)
[2020-09-10] MEDS: budesonide 0.5 mg/2 mL Neb INHALATION (08:26)
[2020-09-10 08:27] VITALS: PULSE 122; RESP 18; O2SAT 94
[2020-09-10 08:30] VITALS: PULSE 129
[2020-09-10] MEDS: amoxicillin-clav 875-125 mg Tablet 1 TAB PO (08:54)
[2020-09-10] MEDS: predniSONE 20 mg Tablet 60 MG PO (08:54)
[2020-09-10] MEDS: metoprolol succinate ER (24 HR) 25 mg Tablet PO (08:54)
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
--- NOTE | 2020-09-10 09:54 | PC.CHAP ---
Pastoral Care Encounter/Spiritual Assessment Type of Contact [] Declined logging supervisor visit [] Patient/Family/Request visit [] Outpatient visit [] Follow-up visit [] Physician referral [] Code/Alert [] Routine visit [] Staff referral [] Actively dying [X] Patient sleeping [] Family support [] [] Out of room [] Palliative care [] [] Receiving care in room [] Pre-surgical visit [] Trauma [] Long length of stay [] ICU visit [] Other: Relational/Emotional Strength [] Patient feels connected with others/family/visitors/staff [] Distress [] Loneliness/isolation [] Abandonment Spirituality of Patient [] Person of Jessica [] Attends Anglican of their Jessica [] Believes in Prayer [] Reads Bible or Shinto materials [] There are Spiritual issues to be addressed Risk Adjustment Specialist Interventions [] Prayer [] Active listening [] Non-anxious presence [] Spiritual/emotional support [] Crisis/trauma care [] Spiritual counseling [] Bereavement support [] Provided bereavement packet [] Provided Bible/devotional materials [] Provided toy/stuffed animal, coloring book to patient or family member [] Provided Communion [] Anointing/[place] [] Salvation [] Completed spiritual assessment [] Other: Impact on Illness or Injury [] Angry [] Fearful [] Anxious [] Often cries [] Exhaustion [] Unable to work [] Unable to attend restorationism [] Unable to walk/stand [] Unable to read [] Unable to drive [] Unable to eat/drink [] Unable to sleep [] Unable to be with family [] Patient intubated [] Other: Summary Time spent with patient
[2020-09-10 10:34] VITALS: O2SAT 89; O2SAT 93
[2020-09-10 11:07] LABS: Glucose Point of Care 147 mg/dL (70-110)
--- NOTE | 2020-09-10 14:07 | PC.NURSE ---
Discharge paperwork provided; education and paper prescriptions provided. All questions answered. Discharge delayed due to no ride available until 2pm. Pt transported to hospital entrance via wheelchair by PROP [employer]TER; all personal belongings sent with pt. Pt going home with daughter. No s/s distress noted at time of discharge; pt denied any concerns or needs at that time.
[2020-09-11 14:23] LABS: Complement Total (CH50) >60 U/mL (31-60)
[2020-09-11 15:23] LABS: Anti-Double Strand DNA AB <1 IU/mL; Jo-1 Antibody <1.0 NEG AI (<1.0 NEG); SM/RNP Antibodies <1.0 NEG AI (<1.0 NEG); SS-B/LA IGG <1.0 NEG AI (<1.0 NEG); Scleroderma Ab(Scl-70) Ab <1.0 NEG AI (<1.0 NEG); Ss-A/Ro Igg <1.0 NEG AI (<1.0 NEG)
== END 2020-09-10 14:15 | disposition home or self-care (01) | DRG 208 ==
LOC: ER 08:27 → ICU 08:42 → MEDSURG 09-09 12:35
PROVIDERS: Nurse Practitioner Family; Admitting Provider Family Medicine; Emergency Provider Family Medicine; Visit Provider Student in an Organized Health Care Education/Training Program
DX: J98.8 Other specified respiratory disorders (principal); Z68.42 Body mass index [BMI] 45.0-49.9, adult; D84.821 Immunodeficiency due to drugs; D84.1 Defects in the complement system; E66.9 Obesity, unspecified; F17.210 Nicotine dependence, cigarettes, uncomplicated; T38.0X5A Adverse effect of glucocorticoids and synthetic analogues, initial encounter; Y92.009 Unspecified place in unspecified non-institutional (private) residence as the place of occurrence of the external cause
CPT/HCPCS: 12345; 36415; 36416; 36600; 51702; 71045; 80051; 80053; 80061; 81001; 82330; 82803; 82805; 82962; 83036; 83540; 83550; 83605; 83880; 84145; 84443; 84484; 85025; 85610; 85730; 86160; 86162; 86225; 86235; 87040; 87070; 87077; 87086; 87186; 87205; 87426; 87635; 93005; 94002; 94003; 94640; 94799; 96372; 96375; 99284; A4570; C9113; J0171; J0330; J1100; J1200; J1650; J1815; J2250; J2704; J2920; J2930; J3010; J3490; J7030; J7050; J7512; J7611; J7626; J7644